=== PATIENT | male | born 1985 | race Hispanic/Latino ===

== ENCOUNTER 2018-08-11 21:37 | Emergency (ER) | payer BC, MEDICAID ==
--- NOTE | 2018-08-11 22:03 | C.PDOC ---
Time Seen by Provider: 08/11/18 22:02 Chief Complaint (Nursing): Seizure Past Medical History Vital Signs: Last Vital Signs Temp 97.6 F 08/11/18 21:51 Pulse 99 H 08/11/18 21:51 Resp 18 08/11/18 21:51 BP 152/100 H 08/11/18 21:51 Pulse Ox 100 08/11/18 21:51 - Medical History PMH: HTN, End Stage Renal Disease, Chronic Kidney Disease - Social History Hx Alcohol Use: Yes Hx Substance Use: Yes - Immunization History Hx Tetanus Toxoid Vaccination: No Hx Influenza Vaccination: Yes Hx Pneumococcal Vaccination: No ED Course And Treatment O2 Sat by Pulse Oximetry: 100 Disposition Counseled Patient/Family Regarding: Studies Performed, Diagnosis - Disposition Referrals: Non [facility] Provider, [Primary Care Provider] - Disposition Time: 22:03
--- NOTE | 2018-08-11 22:07 | C.PDOC ---
History Of Present Illness patient was at [employer] to get a video game with his friend and the next thing he recalls was being told to get into the ambulance. He was told that he was just "wondering " thru out the aisle. N actual seizure activity noticed, no, incontinence,. Pt states that he has a history of seizures when he was young, but is no no meds and has not had any seizures since Time Seen by Provider: 08/11/18 22:02 Chief Complaint (Nursing): Seizure History Per: Patient, EMS History/Exam Limitations: no limitations Onset/Duration Of Symptoms: Mins Current Symptoms Are (Timing): Gone Severity: None Pain Scale Rating Of: 0 Reports Recently: Seen In ED, Treated By A Physician Recent travel outside of the [place]: No Additional History Per: EMS Past Medical History Reviewed: Historical Data, Nursing Documentation, Vital Signs Vital Signs: Last Vital Signs Temp 97.6 F 08/11/18 21:51 Pulse 99 H 08/11/18 21:51 Resp 18 08/11/18 21:51 BP 152/100 H 08/11/18 21:51 Pulse Ox 100 08/11/18 21:51 - Medical History PMH: HTN, End Stage Renal Disease, Chronic Kidney Disease Family History: States: No Known Family Hx - Social History Hx Alcohol Use: Yes Hx Substance Use: Yes - Immunization History Hx Tetanus Toxoid Vaccination: No Hx Influenza Vaccination: Yes Hx Pneumococcal Vaccination: No Review Of Systems Constitutional: Negative for: Fever, Chills Eyes: Negative for: Vision Change Cardiovascular: Negative for: Chest Pain Respiratory: Negative for: Shortness of Breath Gastrointestinal: Negative for: Nausea, Vomiting, Abdominal Pain Genitourinary: Negative for: Dysuria Musculoskeletal: Negative for: Back Pain Skin: Negative for: Rash Neurological: Negative for: Weakness Psych: Negative for: Anxiety Physical Exam - Physical Exam Appears: Non-toxic, No Acute Distress Skin: Warm, Dry Head: Normacephalic Eye(s): bilateral: Normal Inspection, PERRL, EOMI Oral Mucosa: Moist Tongue: Normal Appearing Lips: Normal Appearing Neck: Supple Chest: Symmetrical Cardiovascular: Rhythm Regular Respiratory: No Rales, No Rhonchi, No Wheezing Gastrointestinal/Abdominal: Soft, No Tenderness, No Distention Back: Normal Inspection Extremity: Normal ROM, Other (left arm hd graft with good thrill and bruit) Extremity: Bilateral: Atraumatic, Normal Color And Temperature, Normal ROM Pulses: Left Radial: Normal, Right Radial: Normal, Left Dorsalis Pedis: Normal, Right Dorsalis Pedis: Normal Neurological/Psych: Oriented x3, Normal Speech, Normal Cognition Gait: Steady ED Course And Treatment - Laboratory Results Result Diagrams: 08/11/18 22:35 08/11/18 22:35 O2 Sat by Pulse Oximetry: 100 Pulse Ox Interpretation: Normal - CT Scan/US CT head Other Rad Studies (CT/US): Read By Radiologist, Radiology Report Reviewed CT/US Interpretation: EXAM: CT Head without Intravenous Contrast. CLINICAL HISTORY: Seizure. TECHNIQUE: Axial computed tomography images of the head/brain without intravenous contrast. 0.00 mGy-cm. COMPARISON: None provided. FINDINGS: BRAIN. No acute intraparenchymal hemorrhage. No mass lesion. No CT evidence for acute territorial infarct. No midline shift or extra- axial collections. VENTRICLES: No hydrocephalus. ORBITS: The orbits are unr emarkable. SINUSES AND MASTOIDS: Severe acute on chronic pansinusitis. The mastoid air cells are clear. BONES: No fracture. SOFT TISSUES: Unremarkable. IMPRESSION: Severe acute on chronic pansinusitis. No acute intracranial abnormality. . Electronically signed on Aug 11, 2018 10:44:17 PM EST by: Davis Lawrence M.D., [place] Certified By [facility] & [facility]. Fellowship Trained MRI and CT Specialist. Progress Note: pt feels fine. is scheduled for HD tomorrow Reevaluation Time: 23:43 Reassessment Condition: Improved Disposition Counseled Patient/Family Regarding: Studies Performed, Diagnosis, Need For Followup - Disposition Referrals: Non [facility] Provider, [Primary Care Provider] - Disposition: HOME/ ROUTINE Disposition Time: 22:07 Condition: FAIR Additional Instructions: Please return if symptoms recur Instructions: Seizures, Adult (DC) Forms: [employer] (Turkish) - Clinical Impression Clinical Impression: Seizure
[2018-08-11 22:39] LABS: BASO % 0.5 % (0.0-2.0); EOS # 0.1 K/uL (0.0-0.7); EOS % 1.3 % (0.0-4.0); HEMOGLOBIN 12.5 g/dL (12.0-18.0); LYMPH # 0.7 K/uL (1.0-4.3); LYMPH % 11.9 % (20.0-40.0); MEAN CELL VOLUME 91.9 fL (80.0-94.0); MEAN CORPUSCULAR HEMOGLOBIN 31.9 pg (27.0-31.0); MEAN CORPUSCULAR HGB CONC 34.7 g/dL (33.0-37.0); MEAN PLATELET VOLUME 9.1 fL (7.2-11.7); MONO # 0.4 K/uL (0.0-0.8); NEUT # 4.8 K/uL (1.8-7.0); NEUT % 80.3 % (50.0-75.0); RBC 3.91 Mil/uL (4.40-5.90); RED CELL DISTRIBUTION WIDTH 14.6 % (11.5-14.5)
[2018-08-11 23:05] LABS: ALB/GLOB RATIO 1.8 (1.0-2.1); ALBUMIN 4.1 g/dL (3.5-5.0); ALT/SGPT 33 U/L (21-72); AST/SGOT 29 U/L (17-59); BLOOD UREA NITROGEN 70 mg/dL (9-20); CALCIUM 5.2 mg/dl (8.6-10.4); GFR NON-AFRICAN AMERICAN 7
[2018-08-12 00:10] VITALS: BP 152/98; PULSE 90; RESP 20; TEMP 98.1; O2SAT 97
--- NOTE | 2018-08-12 14:39 | CT ---
Date of service: 08/11/2018 PROCEDURE: CT HEAD WITHOUT CONTRAST. HISTORY: seizure COMPARISON: None available. TECHNIQUE: Axial computed tomography images were obtained through the head/brain without intravenous contrast. Radiation dose: Total exam DLP = 1154.52 mGy-cm. This CT exam was performed using one or more of the following dose reduction techniques: Automated exposure control, adjustment of the mA and/or kV according to patient size, and/or use of iterative reconstruction technique. FINDINGS: HEMORRHAGE: No intracranial hemorrhage. BRAIN: Trace bilateral lucency is seen in the white matter of the frontal horns with alvarez-white matter density otherwise normal above and below the tentorium including the brainstem. There is no mass effect appreciated. The sulci and cisterns appear normal and there is no suspicious extra-axial fluid collection identified. Midline brain anatomy appears normal. VENTRICLES: Unremarkable. No hydrocephalus. CALVARIUM: Unremarkable. PARANASAL SINUSES: Near martinez sinusitis sparing only the left maxillary sinus and a few left ethmoid air cells. In fact, there is complete opacification of the bilateral frontal sinuses and most of the bilateral ethmoid air cells. MASTOID AIR CELLS: Unremarkable as visualized. No inflammatory changes. OTHER FINDINGS: None. IMPRESSION: Trace periventricular white matter lucency surrounding the frontal horns of the lateral ventricles only. This is a nonspecific pattern with remaining brain parenchyma normal in density and configuration. Follow-up MRI is advised without contrast for added characterization. PA review assigned. Incidental near martinez sinusitis as discussed above. Discordant preliminary report from [facility] (periventricular white matter lucency not described in preliminary report), 08/11/2018, 10:44 p.m..
== END 2018-08-12 00:09 | disposition home or self-care (01) ==
LOC: C.ER 21:37 → SUPCPDRO 21:37 → C.ER 08-12 00:09
DX: R56.9 Unspecified convulsions (principal); I12.0 Hypertensive chronic kidney disease with stage 5 chronic kidney disease or end stage renal disease; N18.6 End stage renal disease
CPT/HCPCS: 70450; 80053; 82948; 85025; 99285; G0480